=== PATIENT | male | born 1985 | race Caucasian/White ===

== ENCOUNTER 2017-02-13 04:17 | Emergency (ER) | payer BC ==
[~2017-02-13] VITALS: Ht 172.7 cm; Wt 74.8 kg
--- NOTE | 2017-02-13 04:27 | NUR ---
PT BIB PARENTS WITH C/O WITHDRAWL SYMPTOMS.PT WANTS TO BE EVENTUALLY ADMITTED TO [facility].PT STATES HAS BEEN USING [facility] FOT YEARS.HAS NOT USED IN A COUPLE OF .DAYS.DID SMOKE SOME MARIJUANA TO HELP WITH SYMPTOMS. PT IS ALERT, ORIENTED X 4, PT IS RESTLESS, UNABLE TO STOP MOVING, NO RESP DISTRESS NOTED OR REPORTED... MD AT BEDSIDE...
[2017-02-13] MEDS ORDERED: IV NORMAL SALINE 1000 ML BAG IV ONE (05:00)
[2017-02-13] MEDS ORDERED: ONDANSETRON 4 MG/2 ML VIAL IV ONE (05:00)
[2017-02-13] MEDS ORDERED: LORAZEPAM 2 MG/1 ML VIAL IV ONE (05:00)
[2017-02-13] MEDS ORDERED: ONDANSETRON 4 MG/2 ML VIAL ONE (05:09)
[2017-02-13] MEDS ORDERED: LORAZEPAM 2 MG/1 ML VIAL ONE (05:10)
[2017-02-13 05:12] LABS: BASOPHILS # (AUTO) 0.1 K/uL (0.0-8.0); BASOPHILS % (AUTO) 0.7 % (0.0-2.0); EOSINOPHILS # (AUTO) 0.1 K/uL (0.0-0.7); EOSINOPHILS % (AUTO) 1.2 % (0.0-7.0); HEMATOCRIT 43.4 % (36.7-47.1); HEMOGLOBIN 15.1 g/dL (12.5-16.3); LYMPHOCYTES # (AUTO) 1.8 K/uL (20.0-40.0); LYMPHOCYTES % (AUTO) 21.4 % (20.5-51.5); MEAN CORPUSCULAR HEMOGLOBIN 29.7 uug (23.8-33.4); MEAN CORPUSCULAR HGB CONC 35 g/dL (32.5-36.3); MEAN CORPUSCULAR VOLUME 85.2 fL (73.0-96.2); MONOCYTES # (AUTO) 0.8 K/uL (2.0-10.0); MONOCYTES % (AUTO) 9.4 % (0.0-11.0); NEUTROPHILS # (AUTO) 5.6 K/uL (1.8-8.9); NEUTROPHILS % (AUTO) 67.3 % (38.5-71.5); PLATELET COUNT (AUTO) 265 K/uL (152-348); RED BLOOD CELL COUNT(AUTO) 5.09 MIL/uL (4.06-5.63); RED CELL DISTRIBUTION WIDTH 13.1 % (12.1-16.2); WHITE BLOOD COUNT (AUTO) 8.4 K/uL (3.6-10.2)
[2017-02-13 05:24] LABS: ALANINE AMINOTRANSFERASE 31 U/L (16-63); ALBUMIN 4.3 g/dL (3.4-5.0); ALKALINE PHOSPHATASE 71 U/L (50-136); ASPARTATE AMINOTRANSFERASE 21 U/L (15-37); BILIRUBIN,DIRECT 0.1 mg/dL (0.0-0.2); BILIRUBIN,TOTAL 0.7 mg/dL (0.2-1.0); CALCIUM 9.2 mg/dL (8.5-10.1); CARBON DIOXIDE 31 mmol/L (21-32); CHLORIDE 103 mmol/L (98-107); GFR 88 mL/min (>60); GLUCOSE 77 mg/dL (74-106); POTASSIUM 3.5 mmol/L (3.5-5.1); SODIUM SERUM 142 mmol/L (136-145); TOTAL PROTEIN, SERUM 7.6 g/dL (6.4-8.2); UREA NITROGEN, BLOOD 9 mg/dL (7-18)
[2017-02-13 05:25] VITALS: BP 121/74
[2017-02-13 05:27] LABS: ACETAMINOPHEN < 2.0 ug/mL (10-30); ETHANOL < 3 MG/DL (0-0)
[2017-02-13] MEDS ORDERED: diphenhydrAMINE 50 MG/1 ML VIAL ONE (05:28)
[2017-02-13] MEDS ORDERED: CLONIDINE HCL 0.1 MG TABLET PO ONE (05:30)
[2017-02-13] MEDS ORDERED: diphenhydrAMINE 50 MG/1 ML VIAL IV ONE (05:30)
[2017-02-13] MEDS ORDERED: CLONIDINE HCL 0.1 MG TABLET ONE (05:43)
[2017-02-13] MEDS ORDERED: HALOPERIDOL LACTATE 5 MG/1 ML VIAL IM ONE (05:45)
--- NOTE | 2017-02-13 05:45 | NUR ---
FAMILY IN ROOM WITH PT, PT AND MOTHER ARGUING, PT IS BECOMING MORE RESTLESS, PT IS CURSING AT FAMILY, AND IS PULLING OUT IV... NURSING STAFF ASKED FAMILY TO PLEASE WAIT IN WAITING ROOM, THE INTERACTION WITH PT IS MAKING PT AGGRESSIVE AND AGITATED, PT BECOMING NON COMPLIANT, REFUSED TO TAKE MEDICATION WHILE MOTHER AND PARENTS IN THE ROOM...
[2017-02-13] MEDS ORDERED: HALOPERIDOL LACTATE 5 MG/1 ML VIAL ONE (05:49)
--- NOTE | 2017-02-13 06:13 | NUR ---
Patient eloped from facility. ER physician notified. Pt walked out unassisted, with belongings and family at side. Pts mother was requesting medication to "knock" out pt, so he wont go anywhere and he can attend detox... Maribel met with family and advised there is procedure to get admitted, stated serbrittonty wont be able to except until approval from maribel MENENDEZ received... pt and family not satisfied with having to wait... pt and family exited facility...
--- NOTE | 2017-02-13 06:59 | NUR ---
PHARMACY NOTE: PT REFUSED MEDICATION, PT TAKEN OFF TRACKER BEFORE MED COULD BE WASTED IN PYXIS
== END 2017-02-13 06:25 | disposition left against medical advice (07) ==
LOC: EDBD → ER 04:19
DX: F11.23 Opioid dependence with withdrawal (principal); F10.20 Alcohol dependence, uncomplicated; F19.10 Other psychoactive substance abuse, uncomplicated
CPT/HCPCS: 36415; 85025; 93005; A4663; G0480-TC; G6040-TC; J1200; J1630; J2060; J2405; J7030

== ENCOUNTER 2017-02-13 06:43 | Emergency (ER) | payer BC ==
[~2017-02-13] VITALS: Ht 175.3 cm; Wt 74.8 kg
[2017-02-13] MEDS ORDERED: OLANZAPINE 5 MG TABLET ONE ×2 (06:57→07:57)
--- NOTE | 2017-02-13 07:00 | NUR ---
PT IS ALERT, ORIENTED X 4, NO RESP DISTRESS NOTED OR REPORTED UPON ASSESSMENT... PT REDIRECTED MANY TIMES TO GET BACK IN BED, PT FINALLY IN BED, AND IS FINALLY RESTING IN BED... CARE ENDORSED TO DAYSHIFT NURSE, AND ADVISED TO CONTINUE TO MONITOR FOR SAFETY, PAIN, AND COMFORT...
[2017-02-13] MEDS: OLANZAPINE 5 MG TABLET PO ONE ×2 (07:10→07:51)
[2017-02-13] MEDS ORDERED: HALOPERIDOL LACTATE 5 MG/1 ML VIAL ONE (07:14)
[2017-02-13] MEDS ORDERED: LORAZEPAM 2 MG/1 ML VIAL ONE (07:15)
[2017-02-13] MEDS ORDERED: LORAZEPAM 2 MG/1 ML VIAL IM ONE (07:15)
[2017-02-13] MEDS ORDERED: HALOPERIDOL LACTATE 5 MG/1 ML VIAL IM ONE (07:15)
--- NOTE | 2017-02-13 07:40 | NUR ---
PT BECOMING AGITEDED, SAYS HIS LEGS ARE RESTLESS, TRIES TO COME OUT OF BED AND WALK AROUND, GAIT UNSRTEADY, TRIED TO TALK PT BACK TO BED. PT RESISTING.
--- NOTE | 2017-02-13 07:45 | NUR ---
PT WALKING OUT OF BED, GOING TO THE ER MAIN DOOR TRYING TO LEAVE, HAD TO CALL [facility]. PT WAS ESCORTED BACK TO BE AND MEDICATED WITH ZYPREXA WICH REFUSED EARLIER.
--- NOTE | 2017-02-13 08:07 | NUR ---
PT RESTLESS, TRYING TO LEAVE AGAIN, HAD TO CALL [facility] AGAIN, PT ESCORTED BACK TO BED AGAIN. PT ASKING FOR MOTHER, CALLED MOTHER, SHE SAID SHE IS COMING TO ER. PT NOTIFIED.
--- NOTE | 2017-02-13 08:12 | NUR ---
EDY FROM [facility] JUST TOLD US THAT THE PT WILL NOT BE ACCEPTED AT [facility].
--- NOTE | 2017-02-13 08:52 | NUR ---
PT PARENTS AT BEDSIDE, AND TOOK THE PT HOME WITH THEM. PT PARENTS SIGNED THE D/C INSTRUCTION. Patient discharged to home in stable conditon. Written and verbal after care instructions given. Patient PARENTS verbalize understanding of instructions. Addendum: 02/13/17 at 0901 by HEATHER PT PARENT UNDERSTAND THAT PT IS NOT TO SAFE TO DRIVE.
[2017-02-13 09:00] VITALS: BP 106/51
== END 2017-02-13 09:02 | disposition home or self-care (01) ==
LOC: EDBD → ER 06:44
DX: F11.23 Opioid dependence with withdrawal (principal); F10.20 Alcohol dependence, uncomplicated
CPT/HCPCS: A4663; J1630; J2060